=== PATIENT | male | born 1965 | race Caucasian/White ===

== ENCOUNTER 2018-12-02 09:34 | Inpatient (IN) | payer BC, OTHER ==
[~2018-12-02] VITALS: Ht 165.1 cm; Wt 73.1 kg
[~2018-12-02 09:34] MED LIST: ASPI81 PO; ATOR40TA28 PO; FOLI1 PO; FURO40 PO; INSLAN SQ; INSU100V SQ; METO50 PO; NIFE90TA38 PO; PHOSLOC PO; SERT100T12 PO; TRIA15CR48 TP
[2018-12-02] MEDS ORDERED: LOSA50TA64 PO (09:37)
[2018-12-02 10:26] LABS: BASOPHILS % (AUTO) 0.8 % (0.0-2.0); EOSINOPHILS % (AUTO) 1.7 % (1.0-6.0); HEMATOCRIT 31.7 % (41-53); HEMOGLOBIN 11.1 g/dL (13.5-17.5); LYMPHOCYTES # (AUTO) 1.7 K/uL (1.0-4.8); LYMPHOCYTES % (AUTO) 24.5 % (22.0-44.0); MEAN CORPUSCULAR HEMOGLOBIN 32.7 pg (26.0-34.0); MEAN CORPUSCULAR HGB CONC 34.9 G/dL (31.0-37.0); MEAN CORPUSCULAR VOLUME 94 fL (80-100); MONOCYTES # (AUTO) 0.5 K/uL (0.1-1.0); MONOCYTES % (AUTO) 7.1 % (2.0-9.0); NEUTROPHILS # (AUTO) 4.6 K/uL (1.8-7.7); NEUTROPHILS % (AUTO) 65.9 % (40.0-70.0); PLATELET COUNT (AUTO) 189 K/uL (150-450); RED BLOOD CELL COUNT(AUTO) 3.38 MIL/uL (4.50-5.90); RED CELL DISTRIBUTION WIDTH 13.9 % (11.5-14.5)
[2018-12-02 10:34] LABS: CALCIUM, TOTAL 8.4 mg/dL (8.8-10.5); CREATININE 12.11 mg/dL (0.60-1.30); POTASSIUM 4.3 mmol/L (3.5-5.1)
[2018-12-02 10:38] LABS: PROTHROMBIN TIME 10.7 SEC (9.4-11.6)
[2018-12-02 10:39] LABS: ALBUMIN 3.2 g/dL (3.4-5.0); BILIRUBIN,TOTAL 0.5 mg/dL (0.1-1.0); TOTAL PROTEIN, SERUM 7.5 g/dL (6.4-8.2)
[2018-12-02] MEDS ORDERED: NITROGLYCERIN 2% (1 GM=INCH) PACKET TP ONE (11:30)
[2018-12-02] MEDS ORDERED: MAGNESIUM HYDROXIDE SUSPENSION 30 ML UDCUP PO PRN (11:45)
[2018-12-02] MEDS ORDERED: ACETAMINOPHEN 325 MG TABLET PO PRN (11:45)
[2018-12-02] MEDS ORDERED: DEXTROSE 50%-WATER 25 GM/50 ML SYRINGE IVP PRN (11:45)
[2018-12-02] MEDS ORDERED: BISACODYL 10 MG RECTAL RECTAL SUPPOSITORY PR PRN (11:45)
[2018-12-02] MEDS ORDERED: HydrALAZINE HCL 20 MG/ML VIAL IVP PRN (11:45)
[2018-12-02] MEDS ORDERED: ZOLPIDEM TARTRATE 5 MG TABLET PO PRN (11:45)
[2018-12-02] MEDS ORDERED: ONDANSETRON HCL 4 MG/2 ML VIAL IVP PRN (11:45)
[2018-12-02] MEDS ORDERED: HYDROCODONE/ACETAMINOPHEN 5-325 MG TABLET PO PRN (11:45)
[2018-12-02] MEDS ORDERED: MORPHINE SULFATE 4 MG/ML SYRINGE IVP PRN (11:45)
[2018-12-02] MEDS: NIFEdipine 90 MG ER TABLET PO SCH ×2 (12:10→21:00)
[2018-12-02] MEDS: CALCIUM ACETATE 667 MG CAPSULE PO SCH ×2 (12:10→18:34)
[2018-12-02] MEDS: LOSARTAN POTASSIUM 50 MG TABLET PO SCH ×2 (12:10→21:00)
[2018-12-02 14:41] VITALS: BP 201/105
[2018-12-02] MEDS: HEPARIN SODIUM,PORCINE 5,000 UNITS/ML VIAL SQ SCH (16:00)
[2018-12-02 16:12] VITALS: BP 177/92
[2018-12-02 17:24] VITALS: BP 141/78
[2018-12-02 20:13] VITALS: BP 119/62
[2018-12-02 20:29] LABS: GLUCOMETER DEV NAME(LOC) 5S.2; GLUCOSE,POINT OF CARE 93 MG/DL (70-110)
[2018-12-02 20:29] LABS: GLUCOMETER DEV NAME(LOC) 5S.2; GLUCOSE,POINT OF CARE 98 MG/DL (70-110)
[2018-12-02] MEDS: DOCUSATE SODIUM 100 MG CAPSULE PO SCH ×2 (21:00→21:13)
[2018-12-02] MEDS: METOPROLOL TARTRATE 50 MG TABLET PO SCH (21:00)
[2018-12-02] MEDS: ATORVASTATIN CALCIUM 40 MG TABLET PO SCH (21:12)
[2018-12-02] MEDS: INSULIN LISPRO 100 UNITS/ML SQ PRN (21:25)
[2018-12-02 23:20] VITALS: BP 117/62
[2018-12-03 01:39] LABS: GLUCOMETER DEV NAME(LOC) 5S.2; GLUCOSE,POINT OF CARE 207 MG/DL (70-110)
[2018-12-03 04:23] VITALS: BP 111/72
[2018-12-03] MEDS: INSULIN LISPRO 100 UNITS/ML SQ PRN ×3 (05:54→21:03)
[2018-12-03] MEDS: HEPARIN SODIUM,PORCINE 5,000 UNITS/ML VIAL SQ SCH ×3 (08:00→16:00)
[2018-12-03 08:39] VITALS: BP 141/76
[2018-12-03] MEDS: LOSARTAN POTASSIUM 50 MG TABLET PO SCH ×2 (09:00→20:58)
[2018-12-03] MEDS: NIFEdipine 90 MG ER TABLET PO SCH ×2 (09:00→21:00)
[2018-12-03] MEDS: METOPROLOL TARTRATE 50 MG TABLET PO SCH ×2 (09:00→20:58)
[2018-12-03] MEDS: DOCUSATE SODIUM 100 MG CAPSULE PO SCH ×2 (09:00→21:00)
[2018-12-03] MEDS: DENTURE CLEANSER TABLET [8'S] DT SCH (09:13)
[2018-12-03] MEDS: FOLIC ACID 1 MG TABLET PO SCH (09:14)
[2018-12-03] MEDS: ASPIRIN 81 MG CHEWABLE TABLET PO SCH (09:14)
[2018-12-03] MEDS: CALCIUM ACETATE 667 MG CAPSULE PO SCH ×3 (09:15→18:57)
[2018-12-03] MEDS: FUROSEMIDE 40 MG TABLET PO SCH (09:15)
[2018-12-03] MEDS: PANTOPRAZOLE SODIUM 40 MG DR TABLET PO SCH (09:15)
[2018-12-03] MEDS: INSULIN GLARGINE,HUM.REC.ANLOG 100 UNITS/ML SQ SCH (09:25)
[2018-12-03 11:29] VITALS: BP 150/78
[2018-12-03 12:19] LABS: GLUCOMETER DEV NAME(LOC) 5S.2; GLUCOSE,POINT OF CARE 157 MG/DL (70-110)
[2018-12-03 12:20] LABS: GLUCOMETER DEV NAME(LOC) 5S.2; GLUCOSE,POINT OF CARE 194 MG/DL (70-110)
[2018-12-03 12:20] LABS: GLUCOMETER DEV NAME(LOC) 5S.1; GLUCOSE,POINT OF CARE 233 MG/DL (70-110)
[2018-12-03] MEDS ORDERED: SODIUM CHLORIDE 0.9% 2,000 ML IV ONE (13:42)
[2018-12-03 16:42] VITALS: BP 164/84
[2018-12-03 19:00] VITALS: BP 169/89
[2018-12-03 20:45] VITALS: BP 158/79
[2018-12-03] MEDS: ATORVASTATIN CALCIUM 40 MG TABLET PO SCH (20:58)
[2018-12-03 22:19] LABS: GLUCOMETER DEV NAME(LOC) 5S.2; GLUCOSE,POINT OF CARE 94 MG/DL (70-110)
[2018-12-03 22:20] LABS: GLUCOMETER DEV NAME(LOC) 5S.2; GLUCOSE,POINT OF CARE 220 MG/DL (70-110)
[2018-12-04 03:19] VITALS: BP 132/64
[2018-12-04] MEDS: HEPARIN SODIUM,PORCINE 5,000 UNITS/ML VIAL SQ SCH ×2 (08:00)
[2018-12-04] MEDS: NIFEdipine 90 MG ER TABLET PO SCH (08:16)
[2018-12-04] MEDS: FOLIC ACID 1 MG TABLET PO SCH (08:17)
[2018-12-04] MEDS: FUROSEMIDE 40 MG TABLET PO SCH (08:17)
[2018-12-04] MEDS: PANTOPRAZOLE SODIUM 40 MG DR TABLET PO SCH (08:17)
[2018-12-04] MEDS: ASPIRIN 81 MG CHEWABLE TABLET PO SCH (08:17)
[2018-12-04] MEDS: CALCIUM ACETATE 667 MG CAPSULE PO SCH ×2 (08:17→11:53)
[2018-12-04] MEDS: METOPROLOL TARTRATE 50 MG TABLET PO SCH (08:17)
[2018-12-04] MEDS: LOSARTAN POTASSIUM 50 MG TABLET PO SCH (08:18)
[2018-12-04] MEDS: DOCUSATE SODIUM 100 MG CAPSULE PO SCH (08:19)
[2018-12-04] MEDS: INSULIN GLARGINE,HUM.REC.ANLOG 100 UNITS/ML SQ SCH (08:24)
[2018-12-04] MEDS: DENTURE CLEANSER TABLET [8'S] DT SCH (08:25)
[2018-12-04 08:52] VITALS: BP 161/77
[2018-12-04 10:59] LABS: GLUCOMETER DEV NAME(LOC) 5S.1; GLUCOSE,POINT OF CARE 143 MG/DL (70-110)
[2018-12-04 11:18] VITALS: BP 159/82
[2018-12-04] MEDS: INSULIN LISPRO 100 UNITS/ML SQ PRN (11:45)
[2018-12-04 15:15] LABS: GLUCOMETER DEV NAME(LOC) 5S.2; GLUCOSE,POINT OF CARE 164 MG/DL (70-110)
[2018-12-04] MEDS ORDERED: METOPROLOL TARTRATE 50 MG TABLET PO SCH (21:00)
== END 2018-12-04 13:45 | disposition home or self-care (01) | DRG 640 ==
LOC: EMS 09:34 → 5S 13:32
PROVIDERS: ADMIT Internal Medicine; ATTEND Internal Medicine
PROC: 5A1D70Z Performance of Urinary Filtration, Intermittent, Less than 6 Hours Per Day (ICD-10-PCS; principal; 2018-12-02)
DX: E87.70 Fluid overload, unspecified (principal); I50.31 Acute diastolic (congestive) heart failure; N18.6 End stage renal disease; I13.2 Hypertensive heart and chronic kidney disease with heart failure and with stage 5 chronic kidney disease, or end stage renal disease; I16.0 Hypertensive urgency; E78.00 Pure hypercholesterolemia, unspecified; E78.5 Hyperlipidemia, unspecified; E11.22 Type 2 diabetes mellitus with diabetic chronic kidney disease; Z79.4 Long term (current) use of insulin; Z79.82 Long term (current) use of aspirin; Z79.899 Other long term (current) drug therapy; Z91.15 Patient's noncompliance with renal dialysis; Z99.2 Dependence on renal dialysis
CPT/HCPCS: 87081; 87340; 93005; G0378; J1644; J1815; J7030

== ENCOUNTER 2019-05-06 11:18 | Inpatient (IN) | payer BC, OTHER ==
[~2019-05-06] VITALS: Ht 162.6 cm; Wt 73.6 kg
[~2019-05-06 11:18] MED LIST changes: -FOLI1 PO; -FURO40 PO; -INSLAN SQ; -INSU100V SQ; +LOSA50TA64 PO; -NIFE90TA38 PO; -SERT100T12 PO; -TRIA15CR48 TP
[2019-05-06] MEDS ORDERED: PHOSLOC PO (11:44)
[2019-05-06] MEDS ORDERED: NIFE30TA5 PO (11:44)
[2019-05-06] MEDS ORDERED: SERT100T12 PO (11:44)
[2019-05-06] MEDS ORDERED: FURO40 PO (11:44)
[2019-05-06] MEDS ORDERED: CLON-570 PO (11:44)
[2019-05-06] MEDS ORDERED: VENL-53 PO (11:44)
[2019-05-06] MEDS ORDERED: INSLAN SQ (11:45)
[2019-05-06] MEDS ORDERED: INSU100V SQ (11:46)
[2019-05-06 12:05] LABS: BASOPHILS % (AUTO) 0.6 % (0.0-2.0); EOSINOPHILS % (AUTO) 0.2 % (1.0-6.0); HEMATOCRIT 30.3 % (41-53); HEMOGLOBIN 10.4 g/dL (13.5-17.5); LYMPHOCYTES # (AUTO) 0.9 K/uL (1.0-4.8); LYMPHOCYTES % (AUTO) 21.7 % (22.0-44.0); MEAN CORPUSCULAR HGB CONC 34.3 G/dL (31.0-37.0); MEAN CORPUSCULAR VOLUME 96 fL (80-100); MONOCYTES # (AUTO) 0.6 K/uL (0.1-1.0); MONOCYTES % (AUTO) 13.8 % (2.0-9.0); NEUTROPHILS # (AUTO) 2.6 K/uL (1.8-7.7); NEUTROPHILS % (AUTO) 63.7 % (40.0-70.0); PLATELET COUNT (AUTO) 116 K/uL (150-450); RED BLOOD CELL COUNT(AUTO) 3.15 MIL/uL (4.50-5.90); RED CELL DISTRIBUTION WIDTH 14.5 % (11.5-14.5)
[2019-05-06] MEDS ORDERED: ACETAMINOPHEN 1000 MG/ISO-OSM 100 ML IV ONE (12:15)
[2019-05-06 12:17] LABS: ANION GAP 7 mmol/L (8-16); CALCIUM, TOTAL 8.9 mg/dL (8.8-10.5); CARBON DIOXIDE 31 mmol/L (22-29); CHLORIDE 100 mmol/L (98-107); CREATININE 4.67 mg/dL (0.60-1.30); GLOMERULAR FILTR. RATE CALC 13 mL/min (>60); GLUCOSE,RANDOM 107 mg/dL (70-110); POTASSIUM 3.5 mmol/L (3.5-5.1); SODIUM SERUM 138 mmol/L (136-145); UREA NITROGEN, BLOOD 15 mg/dL (7-18)
[2019-05-06 12:27] LABS: B-TYPE NATRIURETIC PEPTIDE > 5000 pg/mL (0-100)
[2019-05-06 12:31] LABS: ALANINE AMINOTRANSFERASE 11 U/L (12-78); ALBUMIN 3.3 g/dL (3.4-5.0); ALKALINE PHOSPHATASE 80 U/L (46-116); ASPARTATE AMINOTRANSFERASE 14 U/L (15-37); BILIRUBIN,TOTAL 1.6 mg/dL (0.1-1.0); CREATINE KINASE, TOTAL ONLY 70 U/L (39-308); INR 1.1 (0.9-1.1); LIPASE 51 U/L (73-393); PROTHROMBIN TIME 11.1 SEC (9.4-11.6); TOTAL PROTEIN, SERUM 7.5 g/dL (6.4-8.2)
[2019-05-06] MEDS ORDERED: SODIUM CHLORIDE 0.9% 250 ML IV ONE (13:15)
[2019-05-06] MEDS ORDERED: CefTRIAXone 1 GM/DEXTROSE 50 ML IV ONE (13:30)
[2019-05-06] MEDS ORDERED: SODIUM CHLORIDE 0.9% 2,050 ML IV ONE (13:52)
[2019-05-06] MEDS ORDERED: SODIUM CHLORIDE 0.9% 1,000 ML IV SCH (14:00)
[2019-05-06 14:02] LABS: INFLUENZA TYPE A NEGATIVE FOR TYPE A (NEGATIVE); INFLUENZA TYPE B NEGATIVE FOR TYPE B (NEGATIVE)
[2019-05-06] MEDS ORDERED: AZITHROMYCIN 500 MG/NS 250 ML IV ONE (15:15)
[2019-05-06] MEDS ORDERED: METOCLOPRAMIDE HCL 5 MG/ML 2 ML VIAL IVP ONE (16:00)
[2019-05-06 18:40] VITALS: BP 175/89
[2019-05-06] MEDS ORDERED: ACETAMINOPHEN 325 MG TABLET PO PRN (19:00)
[2019-05-06] MEDS ORDERED: MAGNESIUM HYDROXIDE SUSPENSION 30 ML UDCUP PO PRN (19:00)
[2019-05-06] MEDS: VENLAFAXINE HCL 37.5 MG TABLET PO SCH (19:00)
[2019-05-06] MEDS ORDERED: 0.9% SODIUM CHLORIDE 10 ML SYRINGE IVP PRN (19:00)
[2019-05-06] MEDS ORDERED: ONDANSETRON HCL 4 MG/2 ML VIAL IVP PRN (19:00)
[2019-05-06] MEDS: SERTRALINE HCL 100 MG TABLET PO SCH (19:00)
[2019-05-06] MEDS ORDERED: OxyCODONE HCL/ACETAMINOPHEN 5-325 MG TABLET PO PRN ×2 (19:00)
[2019-05-06] MEDS: INSULIN GLARGINE,HUM.REC.ANLOG 100 UNITS/ML SQ SCH (19:00)
[2019-05-06] MEDS ORDERED: VENLAFAXINE HCL 25 MG TABLET PO SCH (19:05)
[2019-05-06 20:07] VITALS: BP 175/85
[2019-05-06] MEDS: LOSARTAN POTASSIUM 50 MG TABLET PO SCH (20:53)
[2019-05-06] MEDS: NIFEdipine 30 MG ER TABLET PO SCH (20:53)
[2019-05-06] MEDS: FUROSEMIDE 40 MG TABLET PO SCH (20:53)
[2019-05-06] MEDS: ASPIRIN 81 MG CHEWABLE TABLET PO SCH (20:53)
[2019-05-06] MEDS: DOCUSATE SODIUM 100 MG CAPSULE PO SCH (20:55)
[2019-05-06] MEDS: METOPROLOL TARTRATE 50 MG TABLET PO SCH (21:00)
[2019-05-07] VITALS (7 sets, daily range): BP systolic 140–172; BP diastolic 74–86
[2019-05-07 06:39] LABS: GLUCOMETER DEV NAME(LOC) 5N.1; GLUCOSE,POINT OF CARE 184 MG/DL (70-110)
[2019-05-07 06:44] LABS: BASOPHILS % (AUTO) 0.8 % (0.0-2.0); EOSINOPHILS % (AUTO) 5.1 % (1.0-6.0); HEMOGLOBIN 10.3 g/dL (13.5-17.5); LYMPHOCYTES # (AUTO) 1.4 K/uL (1.0-4.8); LYMPHOCYTES % (AUTO) 38.6 % (22.0-44.0); MEAN CORPUSCULAR HEMOGLOBIN 33.4 pg (26.0-34.0); MEAN CORPUSCULAR HGB CONC 34.3 G/dL (31.0-37.0); MEAN CORPUSCULAR VOLUME 97 fL (80-100); MONOCYTES # (AUTO) 0.6 K/uL (0.1-1.0); MONOCYTES % (AUTO) 16.9 % (2.0-9.0); NEUTROPHILS # (AUTO) 1.4 K/uL (1.8-7.7); NEUTROPHILS % (AUTO) 38.6 % (40.0-70.0); PLATELET COUNT (AUTO) 117 K/uL (150-450); RED BLOOD CELL COUNT(AUTO) 3.08 MIL/uL (4.50-5.90); RED CELL DISTRIBUTION WIDTH 14.6 % (11.5-14.5)
[2019-05-07 07:27] LABS: CALCIUM, TOTAL 8.3 mg/dL (8.8-10.5); CREATININE 6.54 mg/dL (0.60-1.30); POTASSIUM 3.8 mmol/L (3.5-5.1)
[2019-05-07] MEDS: DOCUSATE SODIUM 100 MG CAPSULE PO SCH ×2 (08:23→20:16)
[2019-05-07] MEDS: ASPIRIN 81 MG CHEWABLE TABLET PO SCH (08:23)
[2019-05-07] MEDS: METOPROLOL TARTRATE 50 MG TABLET PO SCH (08:23)
[2019-05-07] MEDS: FUROSEMIDE 40 MG TABLET PO SCH ×2 (08:23→20:16)
[2019-05-07] MEDS: NIFEdipine 30 MG ER TABLET PO SCH ×2 (08:24→20:16)
[2019-05-07] MEDS: CALCIUM ACETATE 667 MG CAPSULE PO SCH ×3 (08:24→17:58)
[2019-05-07] MEDS: LOSARTAN POTASSIUM 50 MG TABLET PO SCH ×2 (08:24→20:16)
[2019-05-07] MEDS: SERTRALINE HCL 100 MG TABLET PO SCH (08:26)
[2019-05-07] MEDS: VENLAFAXINE HCL 37.5 MG TABLET PO SCH (08:26)
[2019-05-07] MEDS: INSULIN GLARGINE,HUM.REC.ANLOG 100 UNITS/ML SQ SCH (08:54)
[2019-05-07 11:39] LABS: GLUCOMETER DEV NAME(LOC) 5N.1; GLUCOSE,POINT OF CARE 169 MG/DL (70-110)
[2019-05-07] MEDS: VITAMIN B COMP/VIT C/FOLIC ACID CAPSULE PO SCH (12:03)
[2019-05-07] MEDS: CefTRIAXone 1 GM/DEXTROSE 50 ML IV SCH (13:02)
[2019-05-07] MEDS: AZITHROMYCIN 500 MG/NS 250 ML IV SCH (13:41)
[2019-05-07 17:49] LABS: GLUCOMETER DEV NAME(LOC) 5N.1; GLUCOSE,POINT OF CARE 155 MG/DL (70-110)
[2019-05-07 20:09] LABS: GLUCOMETER DEV NAME(LOC) 5S.3; GLUCOSE,POINT OF CARE 96 MG/DL (70-110)
[2019-05-07 23:34] LABS: GLUCOMETER DEV NAME(LOC) 5N.1; GLUCOSE,POINT OF CARE 166 MG/DL (70-110)
[2019-05-08 03:52] VITALS: BP 155/79
[2019-05-08 06:14] LABS: GLUCOMETER DEV NAME(LOC) 5N.1; GLUCOSE,POINT OF CARE 93 MG/DL (70-110)
[2019-05-08 07:03] VITALS: BP 157/85
[2019-05-08] MEDS: CALCIUM ACETATE 667 MG CAPSULE PO SCH ×3 (07:50→18:04)
[2019-05-08] MEDS: METOPROLOL TARTRATE 50 MG TABLET PO SCH ×3 (07:51→20:09)
[2019-05-08] MEDS: ASPIRIN 81 MG CHEWABLE TABLET PO SCH (07:51)
[2019-05-08] MEDS: LOSARTAN POTASSIUM 50 MG TABLET PO SCH ×2 (07:51→20:05)
[2019-05-08] MEDS: FUROSEMIDE 40 MG TABLET PO SCH ×2 (07:51→20:05)
[2019-05-08] MEDS: NIFEdipine 30 MG ER TABLET PO SCH ×2 (07:52→20:05)
[2019-05-08] MEDS: VENLAFAXINE HCL 37.5 MG TABLET PO SCH (07:56)
[2019-05-08] MEDS: SERTRALINE HCL 100 MG TABLET PO SCH (07:56)
[2019-05-08] MEDS: DOCUSATE SODIUM 100 MG CAPSULE PO SCH ×2 (07:57→20:09)
[2019-05-08] MEDS: VITAMIN B COMP/VIT C/FOLIC ACID CAPSULE PO SCH (07:57)
[2019-05-08] MEDS: INSULIN GLARGINE,HUM.REC.ANLOG 100 UNITS/ML SQ SCH (08:40)
[2019-05-08 11:01] VITALS: BP 150/78
[2019-05-08 11:19] LABS: GLUCOMETER DEV NAME(LOC) 5N.1; GLUCOSE,POINT OF CARE 181 MG/DL (70-110)
[2019-05-08 13:19] LABS: GLUCOMETER DEV NAME(LOC) 5N.1; GLUCOSE,POINT OF CARE 106 MG/DL (70-110)
[2019-05-08] MEDS: CefTRIAXone 1 GM/DEXTROSE 50 ML IV SCH (13:20)
[2019-05-08] MEDS: AZITHROMYCIN 500 MG/NS 250 ML IV SCH (14:03)
[2019-05-08 15:02] VITALS: BP 145/79
[2019-05-08 19:52] VITALS: BP 151/76
[2019-05-08 23:24] LABS: GLUCOMETER DEV NAME(LOC) 5N.1; GLUCOSE,POINT OF CARE 153 MG/DL (70-110)
[2019-05-08 23:24] LABS: GLUCOMETER DEV NAME(LOC) 5N.1; GLUCOSE,POINT OF CARE 114 MG/DL (70-110)
[2019-05-08 23:27] VITALS: BP 157/81
[2019-05-09 04:05] VITALS: BP 158/70
[2019-05-09 06:19] LABS: CALCIUM, TOTAL 8.5 mg/dL (8.8-10.5); CREATININE 9.56 mg/dL (0.60-1.30); POTASSIUM 4.5 mmol/L (3.5-5.1)
[2019-05-09 07:10] VITALS: BP 162/86
[2019-05-09 07:20] LABS: GLUCOMETER DEV NAME(LOC) 5S.3; GLUCOSE,POINT OF CARE 115 MG/DL (70-110)
[2019-05-09 07:55] LABS: BASOPHILS % (AUTO) 0.4 % (0.0-2.0); EOSINOPHILS % (AUTO) 4.4 % (1.0-6.0); HEMOGLOBIN 9.9 g/dL (13.5-17.5); LYMPHOCYTES # (AUTO) 1.9 K/uL (1.0-4.8); LYMPHOCYTES % (AUTO) 36.7 % (22.0-44.0); MEAN CORPUSCULAR HEMOGLOBIN 33.3 pg (26.0-34.0); MEAN CORPUSCULAR HGB CONC 34.2 G/dL (31.0-37.0); MEAN CORPUSCULAR VOLUME 98 fL (80-100); MONOCYTES # (AUTO) 0.5 K/uL (0.1-1.0); MONOCYTES % (AUTO) 8.6 % (2.0-9.0); NEUTROPHILS # (AUTO) 2.6 K/uL (1.8-7.7); NEUTROPHILS % (AUTO) 49.9 % (40.0-70.0); PLATELET COUNT (AUTO) 144 K/uL (150-450); RED BLOOD CELL COUNT(AUTO) 2.98 MIL/uL (4.50-5.90); RED CELL DISTRIBUTION WIDTH 14.2 % (11.5-14.5)
[2019-05-09] MEDS: INSULIN GLARGINE,HUM.REC.ANLOG 100 UNITS/ML SQ SCH (08:06)
[2019-05-09 08:27] LABS: APPEARANCE,URINE CLEAR (CLEAR); BILIRUBIN,URINE NEGATIVE (NEGATIVE); GLUCOSE, URINE (UA) 250 mg/dL (NEGATIVE); KETONES,URINE NEGATIVE (NEGATIVE); LEUKOCYTE ESTERASE ,URINE NEGATIVE (NEGATIVE); NITRATE,URINE NEGATIVE (NEGATIVE); OCCULT BLOOD,URINE NEGATIVE (NEGATIVE); PH,URINE 7.5 (5.0-8.0); PROTEIN,URINE SEE CONFIRM (NEGATIVE)
[2019-05-09 08:37] LABS: AMPHET/METH SCREEN,URINE NEGATIVE (NEGATIVE); BARBITURATE SCREEN, URINE NEGATIVE (NEGATIVE); BENZODIAZEPINES SCREEN,URINE NEGATIVE (NEGATIVE); CANNABINOID SCREEN,URINE NEGATIVE (NEGATIVE); COCAINE SCREEN,URINE NEGATIVE (NEGATIVE); METHADONE SCREEN, URINE NEGATIVE (NEGATIVE); OPIATE SCREEN,URINE NEGATIVE (NEGATIVE); PHENCYCLIDINE SCREEN,URINE NEGATIVE (NEGATIVE)
[2019-05-09 08:44] LABS: BACTERIA,URINE None Seen /HPF (None Seen); RBC,URINE 0-2 /HPF (0-2); SULFOSALICYLIC ACID,URINE 3+ (Negative); WBC,URINE 0-2 /HPF (0-5)
[2019-05-09] MEDS ORDERED: SODIUM CHLORIDE 0.9% 2,000 ML IV ONE (09:13)
[2019-05-09 11:37] VITALS: BP 189/92
[2019-05-09] MEDS ORDERED: AZIT250T9 PO (12:00)
[2019-05-09] MEDS ORDERED: FOLI0.8T2 PO (12:04)
[2019-05-09 13:49] LABS: GLUCOMETER DEV NAME(LOC) 5N.1; GLUCOSE,POINT OF CARE 137 MG/DL (70-110)
[2019-05-09] MEDS: VENLAFAXINE HCL 37.5 MG TABLET PO SCH (13:51)
[2019-05-09] MEDS: CALCIUM ACETATE 667 MG CAPSULE PO SCH (13:51)
[2019-05-09] MEDS: VITAMIN B COMP/VIT C/FOLIC ACID CAPSULE PO SCH (13:51)
[2019-05-09] MEDS: ASPIRIN 81 MG CHEWABLE TABLET PO SCH (13:51)
[2019-05-09] MEDS: SERTRALINE HCL 100 MG TABLET PO SCH (13:51)
[2019-05-09] MEDS: DOCUSATE SODIUM 100 MG CAPSULE PO SCH (13:51)
[2019-05-09] MEDS: LOSARTAN POTASSIUM 50 MG TABLET PO SCH (13:52)
[2019-05-09] MEDS: FUROSEMIDE 40 MG TABLET PO SCH (13:52)
[2019-05-09] MEDS: METOPROLOL TARTRATE 50 MG TABLET PO SCH (13:52)
[2019-05-09] MEDS: NIFEdipine 30 MG ER TABLET PO SCH (13:53)
[2019-05-09] MEDS: CefTRIAXone 1 GM/DEXTROSE 50 ML IV SCH (14:00)
[2019-05-09 15:29] LABS: GLUCOMETER DEV NAME(LOC) 5S.3; GLUCOSE,POINT OF CARE 123 MG/DL (70-110)
[2019-05-09 19:07] LABS: FREE KAPPA LIGHT CHAINS,S 268.8 mg/L (3.3-19.4); FREE KAPPA/LAMBDA LT CHN RATIO 1.64 (0.26-1.65)
== END 2019-05-09 15:25 | disposition home or self-care (01) | DRG 871 ==
LOC: EMS 11:20 → 5N 18:18
PROVIDERS: ADMIT Internal Medicine; ATTEND Internal Medicine
PROC: 5A1D70Z Performance of Urinary Filtration, Intermittent, Less than 6 Hours Per Day (ICD-10-PCS; principal; 2019-05-09)
DX: A41.9 Sepsis, unspecified organism (principal); J18.1 Lobar pneumonia, unspecified organism; N18.6 End stage renal disease; E44.0 Moderate protein-calorie malnutrition; I13.2 Hypertensive heart and chronic kidney disease with heart failure and with stage 5 chronic kidney disease, or end stage renal disease; D61.818 Other pancytopenia; E78.00 Pure hypercholesterolemia, unspecified; I95.9 Hypotension, unspecified; E11.22 Type 2 diabetes mellitus with diabetic chronic kidney disease; E11.21 Type 2 diabetes mellitus with diabetic nephropathy; E78.5 Hyperlipidemia, unspecified; F32.9 Major depressive disorder, single episode, unspecified; I50.9 Heart failure, unspecified; Z82.49 Family history of ischemic heart disease and other diseases of the circulatory system; Z83.3 Family history of diabetes mellitus; Z99.2 Dependence on renal dialysis; Z87.891 Personal history of nicotine dependence; Z79.899 Other long term (current) drug therapy; Z79.4 Long term (current) use of insulin; Z79.82 Long term (current) use of aspirin; Z68.27 Body mass index [BMI] 27.0-27.9, adult
CPT/HCPCS: 74176; 80307; 83605; 83883; 87040; 87081; 87804; 93005; 99291; G0378; J0131; J0456; J0696; J1815; J2405; J2765; J7030

== ENCOUNTER 2019-08-12 08:43 | Inpatient (IN) | payer BC, OTHER ==
[~2019-08-12] VITALS: Ht 165.1 cm; Wt 79.7 kg
[~2019-08-12 08:43] MED LIST changes: -ATOR40TA28 PO; +AZIT250T9 PO; +CLON0.1T2 PO; +FOLI0.8T2 PO; +FURO40 PO; +INSLAN SQ; +INSU100V SQ; +NIFE30TA5 PO; +SERT100T12 PO; +VENL-53 PO
[2019-08-12] MEDS ORDERED: NIFE60TA71 PO (08:52)
[2019-08-12] MEDS ORDERED: ACETAMINOPHEN 500 MG TABLET PO ONE (09:15)
[2019-08-12] MEDS ORDERED: ONDANSETRON HCL 4 MG/2 ML VIAL IVP ONE (09:15)
[2019-08-12] MEDS ORDERED: CloNIDine HCL 0.1 MG TABLET PO ONE (09:15)
[2019-08-12] MEDS ORDERED: NITROGLYCERIN 2% (1 GM=INCH) PACKET TP ONE (09:15)
[2019-08-12] MEDS ORDERED: ASPIRIN 81 MG CHEWABLE TABLET PO ONE (09:15)
[2019-08-12 10:05] LABS: BASOPHILS % (AUTO) 0.8 % (0.0-2.0); EOSINOPHILS % (AUTO) 2.6 % (1.0-6.0); HEMATOCRIT 33.9 % (41-53); LYMPHOCYTES # (AUTO) 1.7 K/uL (1.0-4.8); LYMPHOCYTES % (AUTO) 31.4 % (22.0-44.0); MEAN CORPUSCULAR HEMOGLOBIN 32.3 pg (26.0-34.0); MEAN CORPUSCULAR HGB CONC 35.3 G/dL (31.0-37.0); MEAN CORPUSCULAR VOLUME 92 fL (80-100); MONOCYTES # (AUTO) 0.6 K/uL (0.1-1.0); MONOCYTES % (AUTO) 10.7 % (2.0-9.0); NEUTROPHILS # (AUTO) 2.9 K/uL (1.8-7.7); NEUTROPHILS % (AUTO) 54.5 % (40.0-70.0); PLATELET COUNT (AUTO) 181 K/uL (150-450); RED CELL DISTRIBUTION WIDTH 14.2 % (11.5-14.5)
[2019-08-12 10:14] LABS: CALCIUM, TOTAL 8.2 mg/dL (8.8-10.5); CREATININE 10.12 mg/dL (0.60-1.30); POTASSIUM 4.5 mmol/L (3.5-5.1)
[2019-08-12 10:19] LABS: ALBUMIN 3.3 g/dL (3.4-5.0); BILIRUBIN,TOTAL 0.5 mg/dL (0.1-1.0); TOTAL PROTEIN, SERUM 7.1 g/dL (6.4-8.2)
[2019-08-12] MEDS ORDERED: BISACODYL 10 MG RECTAL RECTAL SUPPOSITORY PR PRN (11:00)
[2019-08-12] MEDS ORDERED: ACETAMINOPHEN 325 MG TABLET PO PRN (11:00)
[2019-08-12] MEDS ORDERED: ZOLPIDEM TARTRATE 5 MG TABLET PO PRN (11:00)
[2019-08-12] MEDS ORDERED: MAGNESIUM HYDROXIDE SUSPENSION 30 ML UDCUP PO PRN (11:00)
[2019-08-12] MEDS ORDERED: HYDROCODONE/ACETAMINOPHEN 5-325 MG TABLET PO PRN (11:00)
[2019-08-12] MEDS: CALCIUM ACETATE 667 MG CAPSULE PO SCH ×2 (11:24→18:49)
[2019-08-12] MEDS: MORPHINE SULFATE 2 MG/ML SYRINGE IVP PRN (15:26)
[2019-08-12] MEDS: HEPARIN SODIUM,PORCINE 5,000 UNITS/ML VIAL SQ SCH ×2 (16:28→23:02)
[2019-08-12] MEDS ORDERED: INSULIN LISPRO 100 UNITS/ML SQ SCH (17:00)
[2019-08-12] MEDS ORDERED: NIFEdipine 60 MG ER TABLET PO SCH (21:00)
[2019-08-12] MEDS ORDERED: LOSARTAN POTASSIUM 50 MG TABLET PO SCH (21:00)
[2019-08-12] MEDS: DOCUSATE SODIUM 100 MG CAPSULE PO SCH (21:00)
[2019-08-12] MEDS ORDERED: FUROSEMIDE 40 MG TABLET PO SCH (21:00)
[2019-08-12] MEDS: METOPROLOL TARTRATE 50 MG TABLET PO SCH (21:24)
[2019-08-12 22:59] VITALS: BP 195/98
[2019-08-13] VITALS (8 sets, daily range): BP systolic 115–175; BP diastolic 67–79
[2019-08-13] MEDS ORDERED: DEXTROSE 50%-WATER 25 GM/50 ML SYRINGE IVP PRN (01:15)
[2019-08-13] MEDS: ONDANSETRON HCL 4 MG/2 ML VIAL IVP PRN ×3 (03:06→15:04)
[2019-08-13] MEDS: MORPHINE SULFATE 2 MG/ML SYRINGE IVP PRN ×3 (03:06→14:09)
[2019-08-13] MEDS: HEPARIN SODIUM,PORCINE 5,000 UNITS/ML VIAL SQ SCH ×2 (08:00→15:04)
[2019-08-13] MEDS: CALCIUM ACETATE 667 MG CAPSULE PO SCH ×3 (08:00→17:23)
[2019-08-13] MEDS: ASPIRIN 81 MG CHEWABLE TABLET PO SCH (08:45)
[2019-08-13] MEDS: DOCUSATE SODIUM 100 MG CAPSULE PO SCH ×2 (08:46→21:00)
[2019-08-13] MEDS: PANTOPRAZOLE SODIUM 40 MG DR TABLET PO SCH (08:47)
[2019-08-13] MEDS: VITAMIN B COMP/VIT C/FOLIC ACID CAPSULE PO SCH (08:47)
[2019-08-13] MEDS ORDERED: NIFEdipine 60 MG ER TABLET PO SCH (09:00)
[2019-08-13] MEDS ORDERED: FUROSEMIDE 40 MG TABLET PO SCH (09:00)
[2019-08-13] MEDS ORDERED: LOSARTAN POTASSIUM 50 MG TABLET PO SCH (09:00)
[2019-08-13] MEDS: LOSARTAN POTASSIUM 50 MG TABLET PO SCH ×2 (09:25→21:00)
[2019-08-13] MEDS: FUROSEMIDE 40 MG TABLET PO SCH ×2 (09:25→21:03)
[2019-08-13] MEDS: INSULIN GLARGINE,HUM.REC.ANLOG 100 UNITS/ML SQ SCH (09:25)
[2019-08-13 09:50] LABS: GLUCOMETER DEV NAME(LOC) 5N.1; GLUCOSE,POINT OF CARE 153 MG/DL (70-110)
[2019-08-13] MEDS: NIFEdipine 60 MG ER TABLET PO SCH ×2 (10:41→21:00)
[2019-08-13 11:26] LABS: GLUCOMETER DEV NAME(LOC) 5N.2; GLUCOSE,POINT OF CARE 130 MG/DL (70-110)
[2019-08-13] MEDS: METOPROLOL TARTRATE 50 MG TABLET PO SCH ×2 (11:51→21:00)
[2019-08-13] MEDS: INSULIN LISPRO 100 UNITS/ML SQ PRN (17:34)
[2019-08-13 20:02] LABS: GLUCOMETER DEV NAME(LOC) 5N.1; GLUCOSE,POINT OF CARE 202 MG/DL (70-110)
[2019-08-13 20:02] LABS: GLUCOMETER DEV NAME(LOC) 5N.1; GLUCOSE,POINT OF CARE 129 MG/DL (70-110)
[2019-08-14] MEDS: ONDANSETRON HCL 4 MG/2 ML VIAL IVP PRN ×2 (02:49→08:28)
[2019-08-14] MEDS: MORPHINE SULFATE 2 MG/ML SYRINGE IVP PRN ×2 (02:53→08:29)
[2019-08-14 03:57] LABS: GLUCOMETER DEV NAME(LOC) 5N.2; GLUCOSE,POINT OF CARE 100 MG/DL (70-110)
[2019-08-14 04:35] VITALS: BP 146/66
[2019-08-14 07:07] LABS: GLUCOMETER DEV NAME(LOC) 5N.1; GLUCOSE,POINT OF CARE 132 MG/DL (70-110)
[2019-08-14 07:17] VITALS: BP 134/61
[2019-08-14] MEDS: CALCIUM ACETATE 667 MG CAPSULE PO SCH ×3 (08:00→17:14)
[2019-08-14] MEDS: HEPARIN SODIUM,PORCINE 5,000 UNITS/ML VIAL SQ SCH ×3 (08:00→15:43)
[2019-08-14] MEDS: VITAMIN B COMP/VIT C/FOLIC ACID CAPSULE PO SCH (08:28)
[2019-08-14] MEDS: NIFEdipine 60 MG ER TABLET PO SCH ×2 (08:29→21:00)
[2019-08-14] MEDS: FUROSEMIDE 40 MG TABLET PO SCH ×2 (08:29→21:00)
[2019-08-14] MEDS: PANTOPRAZOLE SODIUM 40 MG DR TABLET PO SCH (08:41)
[2019-08-14] MEDS: INSULIN GLARGINE,HUM.REC.ANLOG 100 UNITS/ML SQ SCH (08:41)
[2019-08-14] MEDS: DOCUSATE SODIUM 100 MG CAPSULE PO SCH ×2 (08:42→21:00)
[2019-08-14] MEDS: ASPIRIN 81 MG CHEWABLE TABLET PO SCH (08:42)
[2019-08-14] MEDS: LOSARTAN POTASSIUM 50 MG TABLET PO SCH (08:42)
[2019-08-14] MEDS: METOPROLOL TARTRATE 50 MG TABLET PO SCH ×2 (08:42→21:18)
[2019-08-14] MEDS ORDERED: NITROGLYCERIN 0.3 MG SUBLINGUAL TABLET #100 SL ONE (10:30)
[2019-08-14 10:54] VITALS: BP 158/81
[2019-08-14] MEDS: CIPROFLOXACIN HCL 250 MG TABLET PO SCH ×2 (11:18→21:00)
[2019-08-14 13:06] LABS: GLUCOMETER DEV NAME(LOC) 5N.2; GLUCOSE,POINT OF CARE 138 MG/DL (70-110)
[2019-08-14 15:21] VITALS: BP 134/70
[2019-08-14] MEDS: MetroNIDAZOLE 500 MG TABLET PO SCH ×2 (15:42→21:00)
[2019-08-14] MEDS: INSULIN LISPRO 100 UNITS/ML SQ PRN ×2 (17:47→21:21)
[2019-08-14 17:57] LABS: GLUCOMETER DEV NAME(LOC) 5N.2; GLUCOSE,POINT OF CARE 160 MG/DL (70-110)
[2019-08-14 19:28] VITALS: BP 143/74
[2019-08-14] MEDS: LOSARTAN POTASSIUM 25 MG TABLET PO SCH (21:18)
[2019-08-15 00:11] VITALS: BP 120/61
[2019-08-15 05:10] VITALS: BP 151/76
[2019-08-15 06:22] LABS: BASOPHILS % (AUTO) 0.8 % (0.0-2.0); EOSINOPHILS % (AUTO) 1.6 % (1.0-6.0); HEMATOCRIT 31.8 % (41-53); HEMOGLOBIN 11.3 g/dL (13.5-17.5); LYMPHOCYTES # (AUTO) 1.7 K/uL (1.0-4.8); LYMPHOCYTES % (AUTO) 23.7 % (22.0-44.0); MEAN CORPUSCULAR HEMOGLOBIN 32.6 pg (26.0-34.0); MEAN CORPUSCULAR HGB CONC 35.6 G/dL (31.0-37.0); MEAN CORPUSCULAR VOLUME 92 fL (80-100); MONOCYTES # (AUTO) 0.7 K/uL (0.1-1.0); MONOCYTES % (AUTO) 9.8 % (2.0-9.0); NEUTROPHILS # (AUTO) 4.5 K/uL (1.8-7.7); NEUTROPHILS % (AUTO) 64.1 % (40.0-70.0); PLATELET COUNT (AUTO) 187 K/uL (150-450); RED BLOOD CELL COUNT(AUTO) 3.48 MIL/uL (4.50-5.90)
[2019-08-15 06:55] LABS: ALBUMIN 3.3 g/dL (3.4-5.0); BILIRUBIN,TOTAL 0.5 mg/dL (0.1-1.0); CREATININE 11.5 mg/dL (0.60-1.30); MAGNESIUM 2.4 mg/dL (1.80-2.40); POTASSIUM 5.8 mmol/L (3.5-5.1); TOTAL PROTEIN, SERUM 6.6 g/dL (6.4-8.2)
[2019-08-15 07:22] VITALS: BP 150/87
[2019-08-15] MEDS: HEPARIN SODIUM,PORCINE 5,000 UNITS/ML VIAL SQ SCH ×3 (08:00→16:00)
[2019-08-15] MEDS: CALCIUM ACETATE 667 MG CAPSULE PO SCH ×3 (08:00→17:46)
[2019-08-15] MEDS: INSULIN GLARGINE,HUM.REC.ANLOG 100 UNITS/ML SQ SCH (08:03)
[2019-08-15] MEDS: ASPIRIN 81 MG CHEWABLE TABLET PO SCH (08:57)
[2019-08-15] MEDS: LOSARTAN POTASSIUM 25 MG TABLET PO SCH ×2 (08:58→21:00)
[2019-08-15] MEDS: ATORVASTATIN CALCIUM 20 MG TABLET PO SCH (08:58)
[2019-08-15] MEDS: METOPROLOL TARTRATE 50 MG TABLET PO SCH ×2 (08:58→21:12)
[2019-08-15] MEDS: MetroNIDAZOLE 500 MG TABLET PO SCH ×3 (08:58→21:00)
[2019-08-15] MEDS: FUROSEMIDE 40 MG TABLET PO SCH ×2 (08:58→21:12)
[2019-08-15] MEDS: CIPROFLOXACIN HCL 250 MG TABLET PO SCH ×2 (08:58→21:00)
[2019-08-15] MEDS: NIFEdipine 60 MG ER TABLET PO SCH ×2 (08:58→21:00)
[2019-08-15] MEDS: PANTOPRAZOLE SODIUM 40 MG DR TABLET PO SCH (08:58)
[2019-08-15] MEDS: VITAMIN B COMP/VIT C/FOLIC ACID CAPSULE PO SCH (08:58)
[2019-08-15] MEDS: DOCUSATE SODIUM 100 MG CAPSULE PO SCH ×2 (08:58→21:00)
[2019-08-15 10:52] VITALS: BP 152/55
[2019-08-15] MEDS: INSULIN LISPRO 100 UNITS/ML SQ PRN ×2 (12:07→21:17)
[2019-08-15 15:35] VITALS: BP 149/77
[2019-08-15 20:28] VITALS: BP 181/74
[2019-08-15 20:46] LABS: GLUCOMETER DEV NAME(LOC) 5N.2; GLUCOSE,POINT OF CARE 97 MG/DL (70-110)
[2019-08-15 20:46] LABS: GLUCOMETER DEV NAME(LOC) 5N.2; GLUCOSE,POINT OF CARE 148 MG/DL (70-110)
[2019-08-15 20:46] LABS: GLUCOMETER DEV NAME(LOC) 5N.2; GLUCOSE,POINT OF CARE 178 MG/DL (70-110)
[2019-08-15 20:47] LABS: GLUCOMETER DEV NAME(LOC) 5N.1; GLUCOSE,POINT OF CARE 106 MG/DL (70-110)
[2019-08-15 23:50] LABS: GLUCOMETER DEV NAME(LOC) 5N.1; GLUCOSE,POINT OF CARE 206 MG/DL (70-110)
[2019-08-16] VITALS (7 sets, daily range): BP systolic 107–180; BP diastolic 60–85
[2019-08-16 06:43] LABS: BASOPHILS % (AUTO) 0.6 % (0.0-2.0); EOSINOPHILS % (AUTO) 1.6 % (1.0-6.0); HEMATOCRIT 35.2 % (41-53); HEMOGLOBIN 12.2 g/dL (13.5-17.5); LYMPHOCYTES # (AUTO) 1.6 K/uL (1.0-4.8); LYMPHOCYTES % (AUTO) 23.9 % (22.0-44.0); MEAN CORPUSCULAR HEMOGLOBIN 32.2 pg (26.0-34.0); MEAN CORPUSCULAR HGB CONC 34.7 G/dL (31.0-37.0); MEAN CORPUSCULAR VOLUME 93 fL (80-100); MONOCYTES # (AUTO) 0.7 K/uL (0.1-1.0); MONOCYTES % (AUTO) 10.5 % (2.0-9.0); NEUTROPHILS # (AUTO) 4.4 K/uL (1.8-7.7); NEUTROPHILS % (AUTO) 63.4 % (40.0-70.0); PLATELET COUNT (AUTO) 192 K/uL (150-450); RED BLOOD CELL COUNT(AUTO) 3.79 MIL/uL (4.50-5.90); RED CELL DISTRIBUTION WIDTH 14.6 % (11.5-14.5)
[2019-08-16 07:23] LABS: ALBUMIN 3.6 g/dL (3.4-5.0); BILIRUBIN,TOTAL 0.8 mg/dL (0.1-1.0); CREATININE 8.56 mg/dL (0.60-1.30); MAGNESIUM 2.2 mg/dL (1.80-2.40); POTASSIUM 5.7 mmol/L (3.5-5.1); TOTAL PROTEIN, SERUM 7.8 g/dL (6.4-8.2)
[2019-08-16] MEDS: CALCIUM ACETATE 667 MG CAPSULE PO SCH ×3 (08:00→17:40)
[2019-08-16] MEDS ORDERED: METOPROLOL TARTRATE 5 MG/5 ML VIAL ONE (08:10)
[2019-08-16] MEDS ORDERED: NITROGLYCERIN 400 MCG/SUBLINGUAL SPRAY 4.9 GM BOTTLE SL ONE ×2 (08:10→10:15)
[2019-08-16] MEDS ORDERED: SODIUM CHLORIDE 0.9% 100 ML ONE (08:26)
[2019-08-16] MEDS ORDERED: IOVERSOL 350 MG/ML 150 ML VIAL ONE (08:26)
[2019-08-16] MEDS: PANTOPRAZOLE SODIUM 40 MG DR TABLET PO SCH (09:00)
[2019-08-16] MEDS: MetroNIDAZOLE 500 MG TABLET PO SCH ×3 (09:00→20:25)
[2019-08-16] MEDS: METOPROLOL TARTRATE 50 MG TABLET PO SCH ×2 (09:00→20:25)
[2019-08-16] MEDS: VITAMIN B COMP/VIT C/FOLIC ACID CAPSULE PO SCH (09:00)
[2019-08-16] MEDS: ATORVASTATIN CALCIUM 20 MG TABLET PO SCH (09:00)
[2019-08-16] MEDS: DOCUSATE SODIUM 100 MG CAPSULE PO SCH ×2 (09:00→20:25)
[2019-08-16] MEDS: CIPROFLOXACIN HCL 250 MG TABLET PO SCH ×2 (09:00→20:25)
[2019-08-16] MEDS: ASPIRIN 81 MG CHEWABLE TABLET PO SCH (09:58)
[2019-08-16] MEDS: FUROSEMIDE 40 MG TABLET PO SCH ×2 (09:59→20:25)
[2019-08-16] MEDS: NIFEdipine 60 MG ER TABLET PO SCH ×2 (09:59→20:26)
[2019-08-16] MEDS: LOSARTAN POTASSIUM 25 MG TABLET PO SCH ×2 (09:59→20:25)
[2019-08-16] MEDS: INSULIN GLARGINE,HUM.REC.ANLOG 100 UNITS/ML SQ SCH (10:01)
[2019-08-16] MEDS ORDERED: METOPROLOL TARTRATE 5 MG/5 ML VIAL IVP ONE (10:15)
[2019-08-16] MEDS: HEPARIN SODIUM,PORCINE 5,000 UNITS/ML VIAL SQ SCH ×3 (10:22→16:00)
[2019-08-16] MEDS: INSULIN LISPRO 100 UNITS/ML SQ PRN ×3 (12:02→21:01)
[2019-08-16 14:36] LABS: CALCIUM, TOTAL 8.4 mg/dL (8.8-10.5); CREATININE 9.4 mg/dL (0.60-1.30); POTASSIUM 5.1 mmol/L (3.5-5.1)
[2019-08-16 15:51] LABS: GLUCOMETER DEV NAME(LOC) 5N.1; GLUCOSE,POINT OF CARE 91 MG/DL (70-110)
[2019-08-16 21:56] LABS: GLUCOMETER DEV NAME(LOC) 5S.2A; GLUCOSE,POINT OF CARE 173 MG/DL (70-110)
[2019-08-16 21:56] LABS: GLUCOMETER DEV NAME(LOC) 5S.2A; GLUCOSE,POINT OF CARE 164 MG/DL (70-110)
[2019-08-17] VITALS (7 sets, daily range): BP systolic 120–177; BP diastolic 59–75
[2019-08-17 02:05] LABS: GLUCOMETER DEV NAME(LOC) 5S.1; GLUCOSE,POINT OF CARE 239 MG/DL (70-110)
[2019-08-17] MEDS: INSULIN LISPRO 100 UNITS/ML SQ PRN ×3 (05:57→21:38)
[2019-08-17 06:47] LABS: BASOPHILS % (AUTO) 0.7 % (0.0-2.0); EOSINOPHILS % (AUTO) 2.3 % (1.0-6.0); HEMATOCRIT 35.1 % (41-53); HEMOGLOBIN 12.4 g/dL (13.5-17.5); LYMPHOCYTES # (AUTO) 1.9 K/uL (1.0-4.8); LYMPHOCYTES % (AUTO) 30.6 % (22.0-44.0); MEAN CORPUSCULAR HEMOGLOBIN 32.3 pg (26.0-34.0); MEAN CORPUSCULAR HGB CONC 35.4 G/dL (31.0-37.0); MEAN CORPUSCULAR VOLUME 91 fL (80-100); MONOCYTES # (AUTO) 0.8 K/uL (0.1-1.0); MONOCYTES % (AUTO) 12.2 % (2.0-9.0); NEUTROPHILS # (AUTO) 3.4 K/uL (1.8-7.7); NEUTROPHILS % (AUTO) 54.2 % (40.0-70.0); PLATELET COUNT (AUTO) 178 K/uL (150-450); RED BLOOD CELL COUNT(AUTO) 3.85 MIL/uL (4.50-5.90); RED CELL DISTRIBUTION WIDTH 14.3 % (11.5-14.5)
[2019-08-17 07:12] LABS: CREATININE 11.01 mg/dL (0.60-1.30); POTASSIUM 5.5 mmol/L (3.5-5.1)
[2019-08-17] MEDS: CALCIUM ACETATE 667 MG CAPSULE PO SCH ×3 (08:00→17:28)
[2019-08-17] MEDS: HEPARIN SODIUM,PORCINE 5,000 UNITS/ML VIAL SQ SCH ×4 (08:00→23:39)
[2019-08-17] MEDS: INSULIN GLARGINE,HUM.REC.ANLOG 100 UNITS/ML SQ SCH (09:00)
[2019-08-17] MEDS: DOCUSATE SODIUM 100 MG CAPSULE PO SCH ×2 (09:00→20:31)
[2019-08-17] MEDS: MetroNIDAZOLE 500 MG TABLET PO SCH ×3 (09:00→20:31)
[2019-08-17] MEDS: METOPROLOL TARTRATE 50 MG TABLET PO SCH ×2 (09:00→20:31)
[2019-08-17] MEDS: ATORVASTATIN CALCIUM 40 MG TABLET PO SCH (09:00)
[2019-08-17] MEDS: PANTOPRAZOLE SODIUM 40 MG DR TABLET PO SCH (09:00)
[2019-08-17] MEDS: VITAMIN B COMP/VIT C/FOLIC ACID CAPSULE PO SCH (09:00)
[2019-08-17] MEDS: CIPROFLOXACIN HCL 250 MG TABLET PO SCH ×2 (09:00→20:31)
[2019-08-17] MEDS ORDERED: SODIUM CHLORIDE 0.9% 2,000 ML IV ONE ×2 (09:05→09:06)
[2019-08-17] MEDS: CloNIDine HCL 0.1 MG TABLET PO PRN (11:50)
[2019-08-17 13:55] LABS: GLUCOMETER DEV NAME(LOC) 5S.1; GLUCOSE,POINT OF CARE 174 MG/DL (70-110)
[2019-08-17] MEDS: FUROSEMIDE 40 MG TABLET PO SCH ×2 (14:30→20:31)
[2019-08-17] MEDS: NIFEdipine 60 MG ER TABLET PO SCH ×2 (14:30→20:31)
[2019-08-17] MEDS: LOSARTAN POTASSIUM 25 MG TABLET PO SCH ×2 (14:30→20:31)
[2019-08-17] MEDS: ASPIRIN 81 MG CHEWABLE TABLET PO SCH (14:31)
[2019-08-17] MEDS: SEVELAMER CARBONATE 800 MG TABLET PO SCH (17:28)
[2019-08-18] VITALS (15 sets, daily range): BP systolic 135–217; BP diastolic 52–88
[2019-08-18] MEDS: INSULIN LISPRO 100 UNITS/ML SQ PRN (06:05)
[2019-08-18 06:16] LABS: BASOPHILS % (AUTO) 0.7 % (0.0-2.0); EOSINOPHILS % (AUTO) 1.6 % (1.0-6.0); HEMATOCRIT 32.7 % (41-53); HEMOGLOBIN 11.8 g/dL (13.5-17.5); LYMPHOCYTES # (AUTO) 1.5 K/uL (1.0-4.8); LYMPHOCYTES % (AUTO) 29.8 % (22.0-44.0); MEAN CORPUSCULAR HEMOGLOBIN 32.9 pg (26.0-34.0); MEAN CORPUSCULAR VOLUME 91 fL (80-100); MONOCYTES # (AUTO) 0.6 K/uL (0.1-1.0); MONOCYTES % (AUTO) 11.5 % (2.0-9.0); NEUTROPHILS # (AUTO) 2.9 K/uL (1.8-7.7); NEUTROPHILS % (AUTO) 56.4 % (40.0-70.0); PLATELET COUNT (AUTO) 176 K/uL (150-450); RED BLOOD CELL COUNT(AUTO) 3.58 MIL/uL (4.50-5.90); RED CELL DISTRIBUTION WIDTH 14.6 % (11.5-14.5)
[2019-08-18 06:36] LABS: BILIRUBIN,TOTAL 0.4 mg/dL (0.1-1.0); CALCIUM, TOTAL 8.5 mg/dL (8.8-10.5); CREATININE 6.76 mg/dL (0.60-1.30); POTASSIUM 4.9 mmol/L (3.5-5.1); TOTAL PROTEIN, SERUM 6.9 g/dL (6.4-8.2)
[2019-08-18] MEDS: DOCUSATE SODIUM 100 MG CAPSULE PO SCH ×2 (07:55→21:00)
[2019-08-18] MEDS: CALCIUM ACETATE 667 MG CAPSULE PO SCH ×3 (07:55→23:22)
[2019-08-18] MEDS: HEPARIN SODIUM,PORCINE 5,000 UNITS/ML VIAL SQ SCH ×3 (07:55→23:22)
[2019-08-18] MEDS: SEVELAMER CARBONATE 800 MG TABLET PO SCH ×3 (07:55→23:22)
[2019-08-18] MEDS: CIPROFLOXACIN HCL 250 MG TABLET PO SCH ×2 (07:55→21:00)
[2019-08-18] MEDS: MetroNIDAZOLE 500 MG TABLET PO SCH ×3 (07:56→21:00)
[2019-08-18] MEDS: METOPROLOL TARTRATE 50 MG TABLET PO SCH ×2 (07:56→18:40)
[2019-08-18] MEDS: INSULIN GLARGINE,HUM.REC.ANLOG 100 UNITS/ML SQ SCH (07:57)
[2019-08-18] MEDS: ASPIRIN 81 MG CHEWABLE TABLET PO SCH (07:58)
[2019-08-18] MEDS: VITAMIN B COMP/VIT C/FOLIC ACID CAPSULE PO SCH (09:00)
[2019-08-18] MEDS: FUROSEMIDE 40 MG TABLET PO SCH ×2 (09:00→21:10)
[2019-08-18] MEDS: LOSARTAN POTASSIUM 25 MG TABLET PO SCH ×2 (09:00→18:40)
[2019-08-18] MEDS: NIFEdipine 60 MG ER TABLET PO SCH ×2 (09:00→18:40)
[2019-08-18] MEDS: PANTOPRAZOLE SODIUM 40 MG DR TABLET PO SCH (09:00)
[2019-08-18] MEDS: ATORVASTATIN CALCIUM 40 MG TABLET PO SCH (09:00)
[2019-08-18 10:46] LABS: GLUCOMETER DEV NAME(LOC) 5N.1; GLUCOSE,POINT OF CARE 238 MG/DL (70-110)
[2019-08-18 11:46] LABS: GLUCOMETER DEV NAME(LOC) 5S.1; GLUCOSE,POINT OF CARE 158 MG/DL (70-110)
[2019-08-18 11:46] LABS: GLUCOMETER DEV NAME(LOC) 5S.1; GLUCOSE,POINT OF CARE 128 MG/DL (70-110)
[2019-08-18 13:14] LABS: PROTHROMBIN TIME 10.3 SEC (9.4-11.6)
[2019-08-18] MEDS ORDERED: LIDOCAINE/PF 1% 30 ML VIAL ONE ×2 (14:59→15:32)
[2019-08-18] MEDS ORDERED: SODIUM BICARBONATE 50 MEQ/50 ML VIAL ONE ×2 (14:59→15:32)
[2019-08-18] MEDS ORDERED: IOHEXOL 300 MG/ML 150 ML VIAL ONE (15:00)
[2019-08-18] MEDS ORDERED: IOHEXOL 300 MG/ML 100 ML VIAL ONE ×3 (15:33→16:38)
[2019-08-18] MEDS ORDERED: HEPARIN SODIUM 1000 UNITS/NS 500 ML ONE (15:33)
[2019-08-18] MEDS ORDERED: HEPARIN SODIUM 2,000 UNITS in HEPARIN SODIUM 1000 UNITS/NS 1,000 ML IARTER ONE (15:45)
[2019-08-18] MEDS ORDERED: FentaNYL CITRATE-PF 100 MCG/2 ML VIAL IVP ONE (15:45)
[2019-08-18] MEDS ORDERED: SODIUM CHLORIDE 0.9% 500 ML IV ONE (15:45)
[2019-08-18] MEDS ORDERED: MIDAZOLAM HCL 2 MG/2 ML VIAL IVP ONE (15:45)
[2019-08-18] MEDS ORDERED: FentaNYL CITRATE-PF 100 MCG/2 ML VIAL ONE (15:47)
[2019-08-18] MEDS ORDERED: MIDAZOLAM HCL 2 MG/2 ML VIAL ONE (15:47)
[2019-08-18] MEDS ORDERED: LIDOCAINE 1% 30 ML/SOD BICARB 8.4% 4 ML SQ ONE (15:47)
[2019-08-18] MEDS ORDERED: IOHEXOL 300 MG/ML 100 ML VIAL IARTER ONE ×2 (15:51)
[2019-08-18] MEDS ORDERED: HydrALAZINE HCL 20 MG/ML VIAL ONE ×2 (15:51→16:02)
[2019-08-18] MEDS ORDERED: IOHEXOL 300 MG/ML 100 ML VIAL ICOR ONE (15:51)
[2019-08-18] MEDS ORDERED: HydrALAZINE HCL 20 MG/ML VIAL IVP ONE (15:52)
[2019-08-18] MEDS ORDERED: HEPARIN SODIUM,PORCINE 5,000 UNITS/ML VIAL IVP ONE (16:00)
[2019-08-18] MEDS ORDERED: HEPARIN SODIUM,PORCINE 1,000 UNITS/ML 10 ML VIAL ONE (16:03)
[2019-08-18] MEDS ORDERED: VERAPAMIL HCL 2.5 MG/ML 2 ML VIAL ONE (16:03)
[2019-08-18] MEDS ORDERED: NITROGLYCERIN 50 MG/D5% WATER 250 ML ONE (16:03)
[2019-08-18] MEDS ORDERED: TICAGRELOR 90 MG TABLET ONE (16:04)
[2019-08-18] MEDS ORDERED: ASPIRIN 81 MG CHEWABLE TABLET PO ONE (16:05)
[2019-08-18] MEDS ORDERED: TICAGRELOR 90 MG TABLET PO ONE (16:05)
[2019-08-18] MEDS ORDERED: ASPIRIN 81 MG CHEWABLE TABLET ONE (16:08)
[2019-08-18] MEDS ORDERED: IOHEXOL 300 MG/ML 50 ML VIAL ONE (16:13)
[2019-08-18] MEDS ORDERED: HEPARIN SODIUM 1000 UNITS/NS 1,000 ML ONE (16:25)
[2019-08-18] MEDS ORDERED: NITROGLYCERIN/D5W 50 MG/250 ML IV BOTTLE ICOR ONE (16:30)
[2019-08-18] MEDS ORDERED: VERAPAMIL HCL 2.5 MG/ML 2 ML VIAL ICOR ONE (16:30)
[2019-08-18] MEDS ORDERED: VERAPAMIL HCL 2.5 MG/ML 2 ML VIAL IARTER ONE (16:53)
[2019-08-18] MEDS ORDERED: NITROGLYCERIN/D5W 50 MG/250 ML IV BOTTLE IARTER ONE (16:53)
[2019-08-18 20:41] LABS: GLUCOMETER DEV NAME(LOC) 5N.1; GLUCOSE,POINT OF CARE 125 MG/DL (70-110)
[2019-08-18] MEDS: TICAGRELOR 90 MG TABLET PO SCH (21:10)
[2019-08-18] MEDS: HydrALAZINE HCL 20 MG/ML VIAL IVP PRN (21:12)
[2019-08-18] MEDS: ONDANSETRON HCL 4 MG/2 ML VIAL IVP PRN (23:30)
[2019-08-19] VITALS: BP 155/71
[2019-08-19 00:11] LABS: GLUCOMETER DEV NAME(LOC) 5N.2; GLUCOSE,POINT OF CARE 146 MG/DL (70-110)
[2019-08-19 00:55] LABS: GLUCOSE,POINT OF CARE 108 MG/DL (70-110)
[2019-08-19 00:55] LABS: GLUCOSE,POINT OF CARE 109 MG/DL (70-110)
[2019-08-19 04:00] VITALS: BP 147/75
[2019-08-19 05:52] LABS: BASOPHILS % (AUTO) 0.5 % (0.0-2.0); EOSINOPHILS % (AUTO) 1.3 % (1.0-6.0); HEMATOCRIT 32.2 % (41-53); HEMOGLOBIN 11.5 g/dL (13.5-17.5); LYMPHOCYTES # (AUTO) 1.2 K/uL (1.0-4.8); LYMPHOCYTES % (AUTO) 20.2 % (22.0-44.0); MEAN CORPUSCULAR HEMOGLOBIN 32.6 pg (26.0-34.0); MEAN CORPUSCULAR HGB CONC 35.8 G/dL (31.0-37.0); MEAN CORPUSCULAR VOLUME 91 fL (80-100); MONOCYTES # (AUTO) 0.6 K/uL (0.1-1.0); MONOCYTES % (AUTO) 10.3 % (2.0-9.0); NEUTROPHILS % (AUTO) 67.7 % (40.0-70.0); PLATELET COUNT (AUTO) 179 K/uL (150-450); RED BLOOD CELL COUNT(AUTO) 3.54 MIL/uL (4.50-5.90); RED CELL DISTRIBUTION WIDTH 14.5 % (11.5-14.5)
[2019-08-19 06:02] LABS: INR 1.1 (0.9-1.1); PROTHROMBIN TIME 10.7 SEC (9.4-11.6)
[2019-08-19 06:07] LABS: CALCIUM, TOTAL 8.8 mg/dL (8.8-10.5); CREATININE 9.15 mg/dL (0.60-1.30); PHOSPHORUS 5.1 mg/dL (2.5-4.9); POTASSIUM 5.5 mmol/L (3.5-5.1)
[2019-08-19] MEDS: HydrALAZINE HCL 20 MG/ML VIAL IVP PRN (06:20)
[2019-08-19] MEDS ORDERED: SODIUM CHLORIDE 0.9% 1,000 ML IV ONE ×2 (07:37)
[2019-08-19 08:00] VITALS: BP 158/67
[2019-08-19] MEDS: CALCIUM ACETATE 667 MG CAPSULE PO SCH ×3 (08:00→18:06)
[2019-08-19] MEDS: SEVELAMER CARBONATE 800 MG TABLET PO SCH ×3 (08:00→18:06)
[2019-08-19] MEDS: HEPARIN SODIUM,PORCINE 5,000 UNITS/ML VIAL SQ SCH (08:00)
[2019-08-19 08:20] LABS: GLUCOSE,POINT OF CARE 110 MG/DL (70-110)
[2019-08-19] MEDS: CIPROFLOXACIN HCL 250 MG TABLET PO SCH (09:00)
[2019-08-19] MEDS: DOCUSATE SODIUM 100 MG CAPSULE PO SCH ×2 (09:00→21:00)
[2019-08-19] MEDS: LOSARTAN POTASSIUM 25 MG TABLET PO SCH ×2 (09:00→21:00)
[2019-08-19] MEDS: NIFEdipine 60 MG ER TABLET PO SCH ×2 (09:00→21:01)
[2019-08-19] MEDS: METOPROLOL TARTRATE 50 MG TABLET PO SCH ×3 (09:00→23:27)
[2019-08-19] MEDS: MetroNIDAZOLE 500 MG TABLET PO SCH ×2 (09:00→21:00)
[2019-08-19] MEDS: INSULIN GLARGINE,HUM.REC.ANLOG 100 UNITS/ML SQ SCH (10:02)
[2019-08-19] MEDS: INSULIN LISPRO 100 UNITS/ML SQ PRN ×3 (11:55→23:31)
[2019-08-19] MEDS: VITAMIN B COMP/VIT C/FOLIC ACID CAPSULE PO SCH (11:56)
[2019-08-19] MEDS: TICAGRELOR 90 MG TABLET PO SCH ×2 (11:57→20:57)
[2019-08-19] MEDS: ASPIRIN 81 MG CHEWABLE TABLET PO SCH (11:57)
[2019-08-19] MEDS: ATORVASTATIN CALCIUM 40 MG TABLET PO SCH (11:57)
[2019-08-19] MEDS: FUROSEMIDE 40 MG TABLET PO SCH ×2 (11:58→21:01)
[2019-08-19] MEDS: PANTOPRAZOLE SODIUM 40 MG DR TABLET PO SCH (11:58)
[2019-08-19] MEDS: CloNIDine HCL 0.1 MG TABLET PO PRN (11:58)
[2019-08-19 12:00] VITALS: BP 118/60
[2019-08-19 16:10] LABS: GLUCOSE,POINT OF CARE 177 MG/DL (70-110)
[2019-08-19 19:50] VITALS: BP 135/79
[2019-08-19] MEDS: CEPHALEXIN MONOHYDRATE 500 MG CAPSULE PO SCH (21:00)
[2019-08-19] MEDS: LACTOBACILLUS ACIDOPHILUS/BULGARICUS GRANULES PACKET PO SCH (21:00)
[2019-08-20 00:01] VITALS: BP 165/70
[2019-08-20 00:05] LABS: GLUCOMETER DEV NAME(LOC) 5N.1; GLUCOSE,POINT OF CARE 178 MG/DL (70-110)
[2019-08-20 03:55] LABS: GLUCOMETER DEV NAME(LOC) 5N.2; GLUCOSE,POINT OF CARE 175 MG/DL (70-110)
[2019-08-20 05:15] VITALS: BP 134/66
[2019-08-20 07:44] LABS: BASOPHILS % (AUTO) 0.5 % (0.0-2.0); EOSINOPHILS % (AUTO) 2.2 % (1.0-6.0); HEMATOCRIT 31.6 % (41-53); HEMOGLOBIN 11.1 g/dL (13.5-17.5); LYMPHOCYTES # (AUTO) 1.5 K/uL (1.0-4.8); LYMPHOCYTES % (AUTO) 25.2 % (22.0-44.0); MEAN CORPUSCULAR HEMOGLOBIN 32.3 pg (26.0-34.0); MEAN CORPUSCULAR HGB CONC 35.2 G/dL (31.0-37.0); MEAN CORPUSCULAR VOLUME 92 fL (80-100); MONOCYTES # (AUTO) 0.6 K/uL (0.1-1.0); MONOCYTES % (AUTO) 10.4 % (2.0-9.0); NEUTROPHILS # (AUTO) 3.7 K/uL (1.8-7.7); NEUTROPHILS % (AUTO) 61.7 % (40.0-70.0); PLATELET COUNT (AUTO) 180 K/uL (150-450); RED BLOOD CELL COUNT(AUTO) 3.44 MIL/uL (4.50-5.90); RED CELL DISTRIBUTION WIDTH 14.2 % (11.5-14.5)
[2019-08-20 08:03] LABS: CALCIUM, TOTAL 8.9 mg/dL (8.8-10.5); CREATININE 6.28 mg/dL (0.60-1.30); MAGNESIUM 2.1 mg/dL (1.80-2.40); PHOSPHORUS 3.9 mg/dL (2.5-4.9); POTASSIUM 4.6 mmol/L (3.5-5.1)
[2019-08-20 08:21] VITALS: BP 138/75
[2019-08-20] MEDS: PANTOPRAZOLE SODIUM 40 MG DR TABLET PO SCH (08:21)
[2019-08-20] MEDS: CALCIUM ACETATE 667 MG CAPSULE PO SCH ×3 (08:21→17:57)
[2019-08-20] MEDS: ATORVASTATIN CALCIUM 40 MG TABLET PO SCH (08:21)
[2019-08-20] MEDS: TICAGRELOR 90 MG TABLET PO SCH (08:21)
[2019-08-20] MEDS: ASPIRIN 81 MG CHEWABLE TABLET PO SCH (08:21)
[2019-08-20] MEDS: VITAMIN B COMP/VIT C/FOLIC ACID CAPSULE PO SCH (08:21)
[2019-08-20] MEDS: SEVELAMER CARBONATE 800 MG TABLET PO SCH ×3 (08:21→17:57)
[2019-08-20] MEDS: FUROSEMIDE 40 MG TABLET PO SCH (08:21)
[2019-08-20] MEDS: MetroNIDAZOLE 500 MG TABLET PO SCH ×2 (08:22→16:00)
[2019-08-20] MEDS: DOCUSATE SODIUM 100 MG CAPSULE PO SCH (08:22)
[2019-08-20] MEDS: CEPHALEXIN MONOHYDRATE 500 MG CAPSULE PO SCH (08:22)
[2019-08-20] MEDS: LACTOBACILLUS ACIDOPHILUS/BULGARICUS GRANULES PACKET PO SCH (08:22)
[2019-08-20] MEDS: LOSARTAN POTASSIUM 25 MG TABLET PO SCH (08:23)
[2019-08-20] MEDS: INSULIN GLARGINE,HUM.REC.ANLOG 100 UNITS/ML SQ SCH (08:27)
[2019-08-20] MEDS: METOPROLOL TARTRATE 50 MG TABLET PO SCH (09:00)
[2019-08-20 11:16] VITALS: BP 153/81
[2019-08-20 11:30] LABS: GLUCOMETER DEV NAME(LOC) 5N.1; GLUCOSE,POINT OF CARE 168 MG/DL (70-110)
[2019-08-20] MEDS: NIFEdipine 60 MG ER TABLET PO SCH (11:47)
[2019-08-20] MEDS: INSULIN LISPRO 100 UNITS/ML SQ PRN ×2 (11:48→18:00)
[2019-08-20] MEDS ORDERED: LACT1TAB11 PO (15:54)
[2019-08-20] MEDS ORDERED: SEVE800T17 PO (15:55)
[2019-08-20] MEDS ORDERED: TICA90TA PO (15:56)
[2019-08-20] MEDS ORDERED: LOSA25TA41 PO (15:58)
[2019-08-20] MEDS ORDERED: ATOR40TA71 PO (16:00)
[2019-08-20] MEDS ORDERED: METO50 PO (16:00)
[2019-08-20] MEDS ORDERED: CEPH500 PO (16:01)
[2019-08-20] MEDS ORDERED: METR250 PO (16:02)
[2019-08-20 16:56] VITALS: BP 152/85
[2019-08-20 17:41] LABS: GLUCOMETER DEV NAME(LOC) 5N.1; GLUCOSE,POINT OF CARE 228 MG/DL (70-110)
[2019-08-20 19:40] LABS: GLUCOMETER DEV NAME(LOC) 5S.1; GLUCOSE,POINT OF CARE 129 MG/DL (70-110)
[2019-08-20 19:55] LABS: GLUCOMETER DEV NAME(LOC) 5S.2A; GLUCOSE,POINT OF CARE 169 MG/DL (70-110)
== END 2019-08-20 18:25 | disposition home or self-care (01) | DRG 246 ==
LOC: EMS 08:48 → 5N 18:09 → 5S 08-15 17:31 → ICU 08-18 16:50 → 5S 08-19 15:10
PROVIDERS: ADMIT Internal Medicine; ATTEND Internal Medicine
PROC: 5A1D70Z Performance of Urinary Filtration, Intermittent, Less than 6 Hours Per Day (ICD-10-PCS; 2019-08-12)
PROC: 5A1D70Z Performance of Urinary Filtration, Intermittent, Less than 6 Hours Per Day (ICD-10-PCS; 2019-08-15)
PROC: 5A1D70Z Performance of Urinary Filtration, Intermittent, Less than 6 Hours Per Day (ICD-10-PCS; 2019-08-17)
PROC: 4A023N7 Measurement of Cardiac Sampling and Pressure, Left Heart, Percutaneous Approach (ICD-10-PCS; principal; 2019-08-18)
PROC: 027135Z Dilation of Coronary Artery, Two Arteries with Two Drug-eluting Intraluminal Devices, Percutaneous Approach (ICD-10-PCS; 2019-08-18)
PROC: B2111ZZ Fluoroscopy of Multiple Coronary Arteries using Low Osmolar Contrast (ICD-10-PCS; 2019-08-18)
PROC: B2151ZZ Fluoroscopy of Left Heart using Low Osmolar Contrast (ICD-10-PCS; 2019-08-18)
PROC: 5A1D70Z Performance of Urinary Filtration, Intermittent, Less than 6 Hours Per Day (ICD-10-PCS; 2019-08-19)
DX: I25.110 Atherosclerotic heart disease of native coronary artery with unstable angina pectoris (principal); N18.6 End stage renal disease; K57.92 Diverticulitis of intestine, part unspecified, without perforation or abscess without bleeding; I13.2 Hypertensive heart and chronic kidney disease with heart failure and with stage 5 chronic kidney disease, or end stage renal disease; I16.0 Hypertensive urgency; D63.8 Anemia in other chronic diseases classified elsewhere; E11.22 Type 2 diabetes mellitus with diabetic chronic kidney disease; E78.5 Hyperlipidemia, unspecified; R60.9 Edema, unspecified; I50.9 Heart failure, unspecified; E87.5 Hyperkalemia; F32.9 Major depressive disorder, single episode, unspecified; Z99.2 Dependence on renal dialysis; E11.21 Type 2 diabetes mellitus with diabetic nephropathy; E78.00 Pure hypercholesterolemia, unspecified; Z87.891 Personal history of nicotine dependence; Z95.5 Presence of coronary angioplasty implant and graft; Z79.899 Other long term (current) drug therapy; Z79.82 Long term (current) use of aspirin; E83.39 Other disorders of phosphorus metabolism
CPT/HCPCS: 75574; 83735; 84100; 87045; 87081; 87340; 92920; 92921; 92928; 92929; 93005; 93306; 99291; G0378; J0360; J1644; J1815; J2250; J2270; J2405; J3010; J3490; J7030; J7050; Q9967